=== PATIENT | male | born 1960 | race African-American/Black ===

== ENCOUNTER 2023-08-31 16:38 | Emergency (ER) | payer BC ==
[~2023-08-31] VITALS: Ht 185.4 cm; Wt 158.8 kg
[2023-08-31] MEDS ORDERED: methylPREDNISolone sod succ 125 MG VIAL IV ONE (17:05)
[2023-08-31 17:14] LABS: BASO % 0.2 % (0.0-1.0); EOS % 0.6 % (1.0-4.0); HEMATOCRIT 42.9 % (42.0-52.0); LYMPH # 0.8 10*3/uL (1.3-4.4); LYMPH % 15.6 % (27.0-41.0); MEAN CELL VOLUME 97.1 fl (80.0-94.0); MEAN CORPUSCULAR HGB 31.7 pg (27.0-31.0); MEAN CORPUSCULAR HGB CONC 32.6 g/dl (33.0-37.0); MEAN PLATELET VOLUME 9.8 fl (9.6-12.3); MONO # 0.1 10*3/uL (0.1-1.0); MONO % 2.4 % (3.0-9.0); NEUT # 4.4 10*3/uL (2.3-7.9); NEUT % 80.8 % (47.0-73.0); PLATELET COUNT AUTOMATED 211 10*3/uL (130-400); RED BLOOD COUNT 4.42 10*6/uL (4.50-5.90); RED CELL DISTRI WIDTH 13.9 % (0-14.5); WHITE BLOOD COUNT 5.4 10*3/uL (4.8-10.8)
[2023-08-31 17:28] LABS: ACT PARTIAL THROMBO TIME 31.6 SECONDS (20.0-32.1)
[2023-08-31 17:35] LABS: ALKALINE PHOSPHATASE 168 U/L (46-116); BUN 9 mg/dl (9-23); CHLORIDE 99 mmol/L (98-107); SGPT/ALT 734 U/L (5-49); TOTAL PROTEIN 6.9 gm/dL (6.0-8.0)
[2023-08-31] MEDS ORDERED: SODIUM CHLORIDE 0.9% 100 ML BAG IV ONE (18:10)
[2023-08-31] MEDS ORDERED: IOHEXOL 350 MG/ML 100 ML VIAL IV ONE (18:10)
[2023-08-31] MEDS ORDERED: KLOR-CON M2020 ME1 PO (18:30)
[2023-08-31] MEDS ORDERED: METOPROLOL SUCC25 M2 PO (18:30)
[2023-08-31] MEDS ORDERED: BENICAR HCT 401 EAC1 PO (18:31)
[2023-08-31] MEDS ORDERED: ALLOPURINOL300 MG PO (18:31)
[2023-08-31] MEDS ORDERED: PROCARDIA XL60 MG PO (18:32)
[2023-08-31] MEDS ORDERED: BUSPIRONE10 MG PO (18:34)
[2023-08-31] MEDS ORDERED: CLONIDINE0.3 MG PO (18:35)
[2023-08-31] MEDS ORDERED: LIOTHYRONINE S25 MC1 PO (18:36)
[2023-08-31] MEDS ORDERED: ALDACTONE50 M1 PO (18:36)
[2023-08-31] MEDS ORDERED: VAZALORE81 MG PO (18:37)
[2023-08-31] MEDS ORDERED: BUMETANIDE1 MG PO (18:37)
[2023-08-31] MEDS ORDERED: NALTREXONE50 MG PO (18:38)
[2023-08-31] MEDS ORDERED: HYDRALAZINE HC100 MG PO (18:38)
[2023-08-31] MEDS ORDERED: ESCITALOPRAM OX10 MG PO (18:39)
[2023-08-31] MEDS ORDERED: TRAZODONE150 MG PO (18:39)
[2023-08-31] MEDS ORDERED: MELATONIN5 M7 PO (18:40)
[2023-08-31] MEDS ORDERED: AZITHROMYCIN 250 ML IV ONE (18:50)
[2023-08-31] MEDS ORDERED: Ceftriaxone Sodium 1 GM/10 ML SYR IV ONE (18:50)
[2023-08-31] MEDS ORDERED: FUROSEMIDE 40 MG/4 ML VIAL IV ONE (18:50)
== END 2023-08-31 20:13 | disposition left against medical advice (07) ==
LOC: ED 16:38
PROVIDERS: Physician Assistant Medical
DX: I11.0 Hypertensive heart disease with heart failure (principal); I50.9 Heart failure, unspecified; Z20.822 Contact with and (suspected) exposure to COVID-19; Z53.29 Procedure and treatment not carried out because of patient's decision for other reasons; J18.9 Pneumonia, unspecified organism; R06.03 Acute respiratory distress; R74.01 Elevation of levels of liver transaminase levels; Z91.013 Allergy to seafood; Z91.041 Radiographic dye allergy status